=== PATIENT | female | born 1965 | race Caucasian/White ===

== ENCOUNTER 2017-02-27 11:41 | Inpatient (IN) | payer OTHER ==
[2017-02-27] MEDS ORDERED: NACL 0.9% 1000 ML 1,000 ML ONE (12:29)
[2017-02-27] MEDS ORDERED: ZOFRAN ONE (12:30)
[2017-02-27 12:50] LABS: Hematocrit 44.1 % (30.3-42.9); Hemoglobin 14.3 gm/dl (10.1-14.3); Mean Corpuscular HGB Conc 33 % (30-34); Mean Corpuscular Hemoglobin 31 pg (28-32); Mean Corpuscular Volume 96 fl (79-97); Platelet Count 175 K/mm3 (140-440); Red Cell Distribution Width 14.2 % (13.2-15.2); White Blood Count 6.7 K/mm3 (4.5-11.0)
[2017-02-27] MEDS ORDERED: ZOFRAN IV ONE (13:06)
[2017-02-27 13:07] LABS: Anion Gap 19 mmol/L; BUN/Creatinine Ratio 18.57; Blood Urea Nitrogen 13 mg/dL (7-17); Calcium 8.8 mg/dL (8.4-10.2); Carbon Dioxide 22 mmol/L (22-30); Chloride 106.1 mmol/L (98-107); Glucose 115 mg/dL (65-100); Sodium 143 mmol/L (137-145)
[2017-02-27] MEDS ORDERED: NACL 0.9% 1000 ML 1,000 ML IV ONE (13:07)
--- NOTE | 2017-02-27 14:22 | Emergency Department Report ---
ED Dizziness HPI - General Chief Complaint: Dizziness Stated Complaint: N/V/D Time Seen by Provider: 02/27/17 14:06 Source: family, EMS Mode of arrival: Stretcher Limitations: No Limitations - History of Present Illness Initial Comments: pt isia 52 y/o aaf with nmh who presents for sudden onset dizziness with n/v x 1 episode this am, [place], experience dizziness pull off road got out of car and had 1 episode or n/v , symptoms resolved post n/v pt denies cp no sob no lightheadedness no change in vision no headache, denies cardiac hx no cva, denies change in activity patent , last meal last pm , burger fries, etoh, marijuana, daily smoker, denies symptoms at this time, pt denies recent illness no cough no fever no chills , no diarrhea MD Complaint: dizziness Onset/Timin -: hour(s) Timing: sudden onset, now resolved Description: sense of movement, nausea History of Same: No History of Trauma: No Severity: moderate Improves With: rest Worsens With: nothing Associated Symptoms: denies: chest pain, confusion, cough, diaphoresis, fever/ chills, loss of appetite, malaise, rash, seizure, shortness of breath, syncope, weakness - Related Data Allergies Allergy/AdvReac Type Severity Reaction Status Date / Time No Known Allergies Allergy Verified 02/27/17 12:52 ED Review of Systems ROS: Stated complaint: N/V/D Other details as noted in HPI Constitutional: denies: chills, fever, weakness Eyes: denies: eye pain, eye discharge, vision change ENT: denies: ear pain, throat pain Respiratory: denies: cough, orthopnea, shortness of breath, wheezing Cardiovascular: denies: chest pain, palpitations Endocrine: no symptoms reported Gastrointestinal: denies: abdominal pain, nausea, diarrhea Genitourinary: denies: urgency, dysuria, discharge Musculoskeletal: denies: back pain, joint swelling, arthralgia Skin: denies: rash, lesions Neurological: denies: headache, weakness, numbness, paresthesias, confusion, abnormal gait, vertigo Psychiatric: denies: anxiety, depression Hematological/Lymphatic: as per HPI ED Past Medical Hx - Past Medical History Previous Medical History?: No Additional medical history: SB - Surgical History Past Surgical History?: No - Family History Family history: hypertension, other (COPD) - Social History Smoking Status: Current Every Day Smoker Substance Use Type: None, Alcohol, Marijuana ED Physical Exam - General Limitations: No Limitations General appearance: alert, in no apparent distress - Head Head exam: Present: atraumatic, normocephalic - Eye Eye exam: Present: normal appearance, PERRL, EOMI Pupils: Present: normal accommodation - ENT ENT exam: Present: mucous membranes moist, TM's normal bilaterally, normal external ear exam - Neck Neck exam: Present: normal inspection, full ROM. Absent: tenderness, lymphadenopathy, thyromegaly - Respiratory Respiratory exam: Present: normal lung sounds bilaterally. Absent: respiratory distress, wheezes, rales, rhonchi, stridor, chest wall tenderness - Cardiovascular Cardiovascular Exam: Present: normal rhythm, bradycardia (58 ), normal heart sounds. Absent: systolic murmur, diastolic murmur, rubs, gallop - GI/Abdominal GI/Abdominal exam: Present: soft, normal bowel sounds. Absent: tenderness, guarding, rebound, organomegaly, mass, bruit, hernia - Rectal Rectal exam: Present: deferred - Extremities Exam Extremities exam: Present: normal inspection, full ROM, normal capillary refill. Absent: tenderness, pedal edema, joint swelling, calf tenderness - Back Exam Back exam: Present: normal inspection, full ROM. Absent: CVA tenderness (R), CVA tenderness (L) - Neurological Exam Neurological exam: Present: alert, oriented X3, CN II-XII intact, normal gait, reflexes normal. Absent: motor sensory deficit - Expanded Neurological Exam Expanded Patient oriented to: Present: person, place, time Speech: Present: fluid speech Cranial nerves: EOM's Intact: Normal, Gag Reflex: Normal, Tongue Deviation: Normal, Nystagmus: Normal, Facial Sensation: Normal, Facial Palsy with Forehead Movement: Normal, Facial Palsy without Forehead Movement: Normal Cerebellar function: Finger to Nose: Normal, Heel to Hooper: Normal, Romberg: Normal Upper motor neuron: [place] Neglect: Normal, Pronator Drift: Normal, Babinski Sign : Normal, Sensory Extinction: Normal Sensory exam: Upper Extremity Light Touch: Normal, Upper Extremity Pin Prick: Normal, Upper Extremity Temperature: Normal, UE 2 Point Discrimination: Normal, Lower Extremity Light Touch: Normal, Lower Extremity Pin Prick: Normal, Lower Extremity Temperature: Normal, LE 2 Point Discrimination: Normal Motor strength exam: RUE: 5, LUE: 5, RLE: 5, LLE: 5 DTR: bicep (R): 2+, bicep (L): 2+, tricep (R): 2+, tricep (L): 2+, knee (R): 2+ , knee (L): 2+, ankle (R): 2+, ankle (L): 2+ Best Eye Response (Brianna): (4) open spontaneously Best Motor Response (Sylvester): (6) obeys commands Best Verbal Response (Sylvester): (5) oriented Sylvester Total: 15 - Psychiatric Psychiatric exam: Present: normal affect, normal mood - Skin Skin exam: Present: warm, dry, intact, normal color. Absent: rash ED Course Vital Signs 02/27/17 02/27/17 12:14 13:01 Temperature 97.8 F Pulse Rate 42 L Respiratory 18 18 Rate Blood Pressure 168/86 O2 Sat by Pulse 96 98 Oximetry - Reevaluation(s) Reevaluation #1: Hospitalist consult for Admission recommendation Admit to [facility] dx: Symptomatic Bradycardia , recommendation noted pt admitted to hospitalist. 02/27/17 16:02 ED Medical Decision Making - Lab Data Result diagrams: 02/27/17 12:38 02/27/17 12:38 Laboratory Tests 02/27/17 02/27/17 02/27/17 12:38 12:38 12:38 WBC 6.7 RBC 4.60 Hgb 14.3 Hct 44.1 H MCV 96 MCH 31 MCHC 33 RDW 14.2 Plt Count 175 Sodium 143 Potassium 4.0 Chloride 106.1 Carbon Dioxide 22 Anion Gap 19 BUN 13 Creatinine 0.7 Estimated GFR > 60 BUN/Creatinine Ratio 18.57 Glucose 115 H Calcium 8.8 Troponin T < 0.010 Laboratory Tests 02/27/17 02/27/17 02/27/17 12:38 12:38 12:38 WBC 6.7 RBC 4.60 Hgb 14.3 Hct 44.1 H MCV 96 MCH 31 MCHC 33 RDW 14.2 Plt Count 175 Sodium 143 Potassium 4.0 Chloride 106.1 Carbon Dioxide 22 Anion Gap 19 BUN 13 Creatinine 0.7 Estimated GFR > 60 BUN/Creatinine Ratio 18.57 Glucose 115 H POC Glucose Calcium 8.8 Troponin T < 0.010 Urine Color Urine Turbidity Urine pH Ur Specific [place] Urine Protein Urine Glucose (UA) Urine Ketones Urine Blood Urine Nitrite Urine Bilirubin Urine Urobilinogen Ur Leukocyte Esterase Urine WBC (Auto) Urine RBC (Auto) U Epithel Cells (Auto) Urine HCG, Qual Urine Opiates Screen Urine Methadone Screen Ur Barbiturates Screen Ur Phencyclidine Scrn Ur Amphetamines Screen U Benzodiazepines Scrn Urine Cocaine Screen U Marijuana (THC) Screen Drugs of Abuse Note 02/27/17 02/27/17 02/27/17 12:52 15:00 15:00 WBC RBC Hgb Hct MCV MCH MCHC RDW Plt Count Sodium Potassium Chloride Carbon Dioxide Anion Gap BUN Creatinine Estimated GFR BUN/Creatinine Ratio Glucose POC Glucose 111 H Calcium Troponin T Urine Color Yellow Urine Turbidity Slightly-cloudy Urine pH 8.0 H Ur Specific [place] 1.017 Urine Protein <15 mg/dl Urine Glucose (UA) Neg Urine Ketones Neg Urine Blood Neg Urine Nitrite Neg Urine Bilirubin Neg Urine Urobilinogen < 2.0 Ur Leukocyte Esterase Neg Urine WBC (Auto) 2.0 Urine RBC (Auto) 1.0 U Epithel Cells (Auto) 1.0 Urine HCG, Qual Negative Urine Opiates Screen Presumptive negative Urine Methadone Screen Presumptive negative Ur Barbiturates Screen Presumptive negative Ur Phencyclidine Scrn Presumptive negative Ur Amphetamines Screen Presumptive negative U Benzodiazepines Scrn Presumptive negative Urine Cocaine Screen Presumptive negative U Marijuana (THC) Screen Presumptive positive Drugs of Abuse Note Disclamer - EKG Data EKG shows normal: sinus rhythm Rate: normal, bradycardia - EKG Data When compared to previous EKG there are: previous EKG unavailable - Radiology Data verbal report for radiologist: normal head ct no infarct no bleed - Medical Decision Making pt is a 52 y/o aaf with nmh social hx 30 pack yr smoker, ETOH occasional , and Marijuana 1-2 weekly , pt presented to ed for episode for dizziness diaphoresis with n/v x 1 episode, symptoms resolved after n/v episode, pt denies cp or sob, no dizziness at this time, remains ambulatory to base line, exam: rec'd a/o x 3 nontoxic perrla eomi, ent: normal lungs clear bilat no wheezing, no sylvester, cv: S1 and S2 noted bradycardia at 52 bpm whic normal for this patient , no MRG, no pnd no edema , hs no hx of cad, htn, dm, no near syncope in past does have hx of bradycardia for past 10 yrs , grandmother and uncle or cardiac related issues, pt has no past dizziness no seasonal allergies, labs normal:glucose: 115 mg/dl, Tro: 0.001 UA: HCG: neg EKG: SBrady CT head: no cva no bleed normal head ct, pt advises symptoms have now resolved however hr remains consistently in 40's , ortho static bps: lying 137/85 hr 49, sittin/75 hr 51 , standin/84 hr 53 k no dizziness no n/v plan admit to hospitalist Dr. Geeta Pleitez. Bradycardia Symptomatic , consulted Ed Attending Dr. Levy concurring with same. discussed tx plan with patient, patient verbalized agreement and understanding of same. Critical care attestation.: If time is entered above; I have spent that time in minutes in the direct care of this critically ill patient, excluding procedure time. ED Disposition Clinical Impression: Symptomatic bradycardia Disposition: OP ADMIT IP TO THIS HOSP Is pt being admited?: Yes Does the pt Need Aspirin: Yes Condition: Serious Referrals: PRIMARY CARE, [Primary Care Provider] - 3-5 Days Time of Disposition: 16:08
[2017-02-27 15:08] LABS: Urine Drugs of Abuse Note Disclamer
[2017-02-27 15:18] LABS: Bilirubin,Urine NEG (Negative); Blood,Urine NEG (Negative); Ketones,Urine NEG (Negative); Leukocyte Esterase,Urine NEG (Negative); Nitrite,Urine NEG (Negative); Protein,Urine <15 mg/dL mg/dL (Negative); Urobilinogen,Urine < 2.0 mg/dL (<2.0)
--- NOTE | 2017-02-27 15:31 | Cat Scan Report ---
CT scan of head without contrast: History: Blurred vision/vertigo Findings: Ventricles are normal in size and midline in location. No evidence of acute ischemia, hemorrhage or mass. No extra axial fluid collection. Normal brainstem and cerebellum. Impression: No acute intracranial abnormality.
[2017-02-27] MEDS: ASPIRIN PO SCH ×2 (16:17→17:26)
[2017-02-27] MEDS ORDERED: MILK OF MAGNESIA PO PRN (17:27)
[2017-02-27] MEDS ORDERED: BABY ASPIRIN PO ONE (17:27)
[2017-02-27] MEDS ORDERED: DULCOLAX PR PRN (17:27)
[2017-02-27] MEDS ORDERED: PERCOCET 5/325 PO PRN (17:27)
[2017-02-27] MEDS ORDERED: DILAUDID IV PRN (17:27)
[2017-02-27] MEDS ORDERED: TYLENOL PO PRN (17:27)
[2017-02-27] MEDS ORDERED: ZOFRAN IV PRN (17:27)
--- NOTE | 2017-02-27 17:27 | History and Physical Report ---
History of Present Illness Date of examination: 02/27/17 Date of admission: 02/27/17 Chief complaint: Light headedness and and near syncope History of present illness: [place]: 52 y/o AAF with nosigPMH presents to ER for light headedness and near Syncope.Sudden onset dizziness with n/v x 1 episode this am, while [place] on [place], experienced dizziness pulled off road got out of car and had 1 episode vomiting., symptoms resolved post n/v pt denies cp no sob no lightheadedness no change in vision no headache, denies cardiac hx no Symptoms have resolved completely and feels notmal in ER.No Chest pain or Diaphoresis.No palpitations.Patient was noticed to have low heart rate of 40's.But asymptomatic. - Past Medical History Previous Medical History?: No - Surgical History Past Surgical History?: No - Family History Family history: hypertension, other (COPD) - Social History Smoking Status: Current Every Day Smoker Substance Use Type: Marijuana yesterday ROS: Stated complaint: N/V/D Other details as noted in HPI Constitutional: denies: chills, fever, weakness Eyes: denies: eye pain, eye discharge, vision change ENT: denies: ear pain, throat pain Respiratory: denies: cough, orthopnea, shortness of breath, wheezing Cardiovascular: denies: chest pain, palpitations Endocrine: no symptoms reported Gastrointestinal: denies: abdominal pain, nausea, diarrhea Genitourinary: denies: urgency, dysuria, discharge Musculoskeletal: denies: back pain, joint swelling, arthralgia Skin: denies: rash, lesions Neurological: denies: headache, weakness, numbness, paresthesias, confusion, abnormal gait, vertigo Psychiatric: denies: anxiety, depression Hematological/Lymphatic: as per HPI Medications and Allergies Allergies Allergy/AdvReac Type Severity Reaction Status Date / Time No Known Allergies Allergy Verified 02/27/17 12:52 Home Medications Medication Instructions Recorded Confirmed Last Taken Type No Known Home Medications [No 02/27/17 02/27/17 Unknown History Reported Home Medications] Active Meds: Active Medications Aspirin (Aspirin) 325 mg PO QDAY SATURNINO Last Admin: 02/27/17 17:26 Dose: Not Given Exam - Constitutional Vitals: Temp Pulse Resp BP Pulse Ox 97.8 F 58 L 15 132/81 99 02/27/17 13:01 02/27/17 16:00 02/27/17 16:00 02/27/17 16:00 02/27/17 16:00 Results - Labs CBC & Chem 7: 02/27/17 12:38 02/28/17 06:36 Labs: Laboratory Last Values WBC 6.7 K/mm3 (4.5-11.0) 02/27/17 12:38 RBC 4.60 M/mm3 (3.65-5.03) 02/27/17 12:38 Hgb 14.3 gm/dl (10.1-14.3) 02/27/17 12:38 Hct 44.1 % (30.3-42.9) H 02/27/17 12:38 MCV 96 fl (79-97) 02/27/17 12:38 MCH 31 pg (28-32) 02/27/17 12:38 MCHC 33 % (30-34) 02/27/17 12:38 RDW 14.2 % (13.2-15.2) 02/27/17 12:38 Plt Count 175 K/mm3 (140-440) 02/27/17 12:38 Sodium 143 mmol/L (137-145) 02/27/17 12:38 Potassium 4.0 mmol/L (3.6-5.0) 02/27/17 12:38 Chloride 106.1 mmol/L (98-107) 02/27/17 12:38 Carbon Dioxide 22 mmol/L (22-30) 02/27/17 12:38 Anion Gap 19 mmol/L 02/27/17 12:38 BUN 13 mg/dL (7-17) 02/27/17 12:38 Creatinine 0.7 mg/dL (0.7-1.2) 02/27/17 12:38 Estimated GFR > 60 ml/min 02/27/17 12:38 BUN/Creatinine Ratio 18.57 % 02/27/17 12:38 Glucose 115 mg/dL (65-100) H 02/27/17 12:38 POC Glucose 111 (70-105) H 02/27/17 12:52 Calcium 8.8 mg/dL (8.4-10.2) 02/27/17 12:38 Troponin T < 0.010 ng/mL (0.00-0.029) 02/27/17 14:53 Urine Color Yellow (Yellow) 02/27/17 15:00 Urine Turbidity Slightly-cloudy (Clear) 02/27/17 15:00 Urine pH 8.0 (5.0-7.0) H 02/27/17 15:00 Ur Specific [place] 1.017 (1.003-1.030) 02/27/17 15:00 Urine Protein <15 mg/dl mg/dL (Negative) 02/27/17 15:00 Urine Glucose (UA) Neg mg/dL (Negative) 02/27/17 15:00 Urine Ketones Neg mg/dL (Negative) 02/27/17 15:00 Urine Blood Neg (Negative) 02/27/17 15:00 Urine Nitrite Neg (Negative) 02/27/17 15:00 Urine Bilirubin Neg (Negative) 02/27/17 15:00 Urine Urobilinogen < 2.0 mg/dL (<2.0) 02/27/17 15:00 Ur Leukocyte Esterase Neg (Negative) 02/27/17 15:00 Urine WBC (Auto) 2.0 /HPF (0.0-6.0) 02/27/17 15:00 Urine RBC (Auto) 1.0 /HPF (0.0-6.0) 02/27/17 15:00 U Epithel Cells (Auto) 1.0 /HPF (0-13.0) 02/27/17 15:00 Urine HCG, Qual Negative (Negative) 02/27/17 15:00 Urine Opiates Screen Presumptive negative 02/27/17 15:00 Urine Methadone Screen Presumptive negative 02/27/17 15:00 Ur Barbiturates Screen Presumptive negative 02/27/17 15:00 Ur Phencyclidine Scrn Presumptive negative 02/27/17 15:00 Ur Amphetamines Screen Presumptive negative 02/27/17 15:00 U Benzodiazepines Scrn Presumptive negative 02/27/17 15:00 Urine Cocaine Screen Presumptive negative 02/27/17 15:00 U Marijuana (THC) Screen Presumptive positive 02/27/17 15:00 Drugs of Abuse Note Disclamer 02/27/17 15:00 - Imaging and Cardiology EKG: report reviewed (Bradycardia 40/min) Assessment and Plan Advance Directives: Yes (Full code) VTE prophylaxis?: Chemical Plan of care discussed with patient/family: Yes - Patient Problems (1) Symptomatic bradycardia Current Visit: Yes Status: Acute Plan to address problem: Probably vasovagal.Should resolve spontaneously. Cardiology consult requested in case symptoms and Bradycardia persists. (2) Near syncope Current Visit: Yes Status: Resolved Plan to address problem: TST given risk factor of age and smoking. (3) DVT prophylaxis Current Visit: Yes Status: Acute Plan to address problem: On Lovenox
[2017-02-27] MEDS ORDERED: D5NS 1,000 ML IV SCH (18:00)
[2017-02-28 06:57] LABS: Basophils % (Auto) 0.3 % (0.0-1.8); Eosinophils % (Auto) 3.3 % (0.0-4.3); Hematocrit 41.7 % (30.3-42.9); Hemoglobin 13.4 gm/dl (10.1-14.3); Mean Corpuscular HGB Conc 32 % (30-34); Mean Corpuscular Hemoglobin 31 pg (28-32); Mean Corpuscular Volume 97 fl (79-97); Platelet Count 157 K/mm3 (140-440); Red Blood Count 4.32 M/mm3 (3.65-5.03); Red Cell Distribution Width 14.2 % (13.2-15.2); White Blood Count 3.9 K/mm3 (4.5-11.0)
[2017-02-28 07:23] LABS: Alanine Aminotransferase 11 units/L (7-56); Albumin 3.2 g/dL (3.9-5); Albumin/Globulin Ratio 1.3 %; Alkaline Phosphatase 50 units/L (35-129); Anion Gap 12 mmol/L; BUN/Creatinine Ratio 13.33; Blood Urea Nitrogen 8 mg/dL (7-17); Calcium 8.1 mg/dL (8.4-10.2); Carbon Dioxide 26 mmol/L (22-30); Chloride 110.1 mmol/L (98-107); Glucose 103 mg/dL (65-100); Potassium 4.4 mmol/L (3.6-5.0); Sodium 144 mmol/L (137-145); Total Protein 5.6 g/dL (6.3-8.2)
[2017-02-28 07:59] LABS: Creatine Kinase MB 1.3 ng/mL (0.0-4.0)
[2017-02-28 08:00] LABS: Creatine Kinase 78 units/L (30-135)
[2017-02-28] MEDS: ASPIRIN PO SCH (11:16)
--- NOTE | 2017-02-28 11:46 | Progress Note ---
Assessment and Plan Assessment and plan: 52 y/o AAF with nosigPMH presents to ER for light headedness and near Syncope.Sudden onset dizziness with n/v x 1 episode this am, [place], experienced dizziness pulled off road got out of car and had 1 episode vomiting., symptoms resolved post n/v pt denies cp .Patient was noticed to have low heart rate of 40's Symptomatic bradycardia monitor on tele, Cardiology consult, avoid AVN agent obtain echo and stress test Autonomic imbalance IV hydration, Echocardiogram Tobacco abuse -cessation counseling provided -nicotine patches DVT prophylaxis On Lovenox History Interval history: Presently denies chest pain dizziness, nausea, vomiting, Hospitalist Physical - Physical exam Narrative exam: General: Patient appears well in no distress HEENT: MMM, EOMI cardiac: S1-S2 heard lungs: clear to auscultation, abdomen: soft, nontender, nondistended bowel sounds positive extremities: no edema clubbing or cyanosis Skin: no rash or lesion Neuro: no focal deficit Psych: appropriate behavior and mood, cognition intact - Constitutional Vitals: Temp Pulse Resp BP Pulse Ox 98.2 F 45 L 16 160/74 98 02/28/17 08:34 02/28/17 08:34 02/28/17 08:34 02/28/17 08:34 02/28/17 08:34 Results - Labs CBC & Chem 7: 02/28/17 06:36 02/28/17 06:36 Labs: Laboratory Last Values WBC 3.9 K/mm3 (4.5-11.0) L 02/28/17 06:36 RBC 4.32 M/mm3 (3.65-5.03) 02/28/17 06:36 Hgb 13.4 gm/dl (10.1-14.3) 02/28/17 06:36 Hct 41.7 % (30.3-42.9) 02/28/17 06:36 MCV 97 fl (79-97) 02/28/17 06:36 MCH 31 pg (28-32) 02/28/17 06:36 MCHC 32 % (30-34) 02/28/17 06:36 RDW 14.2 % (13.2-15.2) 02/28/17 06:36 Plt Count 157 K/mm3 (140-440) 02/28/17 06:36 Lymph % (Auto) 41.1 % (13.4-35.0) H 02/28/17 06:36 [place] % (Auto) 7.1 % (0.0-7.3) 02/28/17 06:36 Eos % (Auto) 3.3 % (0.0-4.3) 02/28/17 06:36 Baso % (Auto) 0.3 % (0.0-1.8) 02/28/17 06:36 Lymph # 1.6 K/mm3 (1.2-5.4) 02/28/17 06:36 [place] # 0.3 K/mm3 (0.0-0.8) 02/28/17 06:36 Eos # 0.1 K/mm3 (0.0-0.4) 02/28/17 06:36 Baso # 0.0 K/mm3 (0.0-0.1) 02/28/17 06:36 Seg Neutrophils % 48.2 % (40.0-70.0) 02/28/17 06:36 Seg Neutrophils # 1.9 K/mm3 (1.8-7.7) 02/28/17 06:36 Sodium 144 mmol/L (137-145) 02/28/17 06:36 Potassium 4.4 mmol/L (3.6-5.0) 02/28/17 06:36 Chloride 110.1 mmol/L (98-107) H 02/28/17 06:36 Carbon Dioxide 26 mmol/L (22-30) 02/28/17 06:36 Anion Gap 12 mmol/L 02/28/17 06:36 BUN 8 mg/dL (7-17) 02/28/17 06:36 Creatinine 0.6 mg/dL (0.7-1.2) L 02/28/17 06:36 Estimated GFR > 60 ml/min 02/28/17 06:36 BUN/Creatinine Ratio 13.33 % 02/28/17 06:36 Glucose 103 mg/dL (65-100) H 02/28/17 06:36 POC Glucose 111 (70-105) H 02/27/17 12:52 Calcium 8.1 mg/dL (8.4-10.2) L 02/28/17 06:36 Total Bilirubin 0.20 mg/dL (0.1-1.2) 02/28/17 06:36 AST 13 units/L (5-40) 02/28/17 06:36 ALT 11 units/L (7-56) 02/28/17 06:36 Alkaline Phosphatase 50 units/L (35-129) 02/28/17 06:36 Total Creatine Kinase 78 units/L (30-135) 02/28/17 06:36 CK-MB (CK-2) 1.3 ng/mL (0.0-4.0) 02/28/17 06:36 CK-MB (CK-2) Rel Index 1.6 (0-4) 02/28/17 06:36 Troponin T < 0.010 ng/mL (0.00-0.029) 02/28/17 06:36 Total Protein 5.6 g/dL (6.3-8.2) L 02/28/17 06:36 Albumin 3.2 g/dL (3.9-5) L 02/28/17 06:36 Albumin/Globulin Ratio 1.3 % 02/28/17 06:36 Urine Color Yellow (Yellow) 02/27/17 15:00 Urine Turbidity Slightly-cloudy (Clear) 02/27/17 15:00 Urine pH 8.0 (5.0-7.0) H 02/27/17 15:00 Ur Specific [place] 1.017 (1.003-1.030) 02/27/17 15:00 Urine Protein <15 mg/dl mg/dL (Negative) 02/27/17 15:00 Urine Glucose (UA) Neg mg/dL (Negative) 02/27/17 15:00 Urine Ketones Neg mg/dL (Negative) 02/27/17 15:00 Urine Blood Neg (Negative) 02/27/17 15:00 Urine Nitrite Neg (Negative) 02/27/17 15:00 Urine Bilirubin Neg (Negative) 02/27/17 15:00 Urine Urobilinogen < 2.0 mg/dL (<2.0) 02/27/17 15:00 Ur Leukocyte Esterase Neg (Negative) 02/27/17 15:00 Urine WBC (Auto) 2.0 /HPF (0.0-6.0) 02/27/17 15:00 Urine RBC (Auto) 1.0 /HPF (0.0-6.0) 02/27/17 15:00 U Epithel Cells (Auto) 1.0 /HPF (0-13.0) 02/27/17 15:00 Urine HCG, Qual Negative (Negative) 02/27/17 15:00 Urine Opiates Screen Presumptive negative 02/27/17 15:00 Urine Methadone Screen Presumptive negative 02/27/17 15:00 Ur Barbiturates Screen Presumptive negative 02/27/17 15:00 Ur Phencyclidine Scrn Presumptive negative 02/27/17 15:00 Ur Amphetamines Screen Presumptive negative 02/27/17 15:00 U Benzodiazepines Scrn Presumptive negative 02/27/17 15:00 Urine Cocaine Screen Presumptive negative 02/27/17 15:00 U Marijuana (THC) Screen Presumptive positive 02/27/17 15:00 Drugs of Abuse Note Disclamer 02/27/17 15:00
--- NOTE | 2017-02-28 12:12 | Consultation ---
History of Present Illness Consult date: 02/28/17 Requesting physician: DANK PARNELL Consult reason: bradycardia, other (presyncope) History of present illness: While driving yesterday morning, the patient claims that she became suddenly dizzy with nausea and vomiting as well as blurring of vision. Symptoms lasted for about 1 hour and persisted by the time she arrived at her destination. She felt weak thereafter. The EMS was activated and she was brought to the emergency department. She denies chest pain, palpitations or dyspnea. Over the past few years, she claims that she has had occasional episodes of dizziness. This morning, she underwent a treadmill exercise stress test which was negative for ischemia. On the monitor, she has been mostly in sinus bradycardia with heart rate in the 40s to 50s. Past History Past Medical History: No medical history Past Surgical History: Other (tubal ligation) Social history: (with 4 children), smoking, other (she drinks alcohol very occasionally) Family history: denies: CAD Medications and Allergies Allergies Allergy/AdvReac Type Severity Reaction Status Date / Time No Known Allergies Allergy Verified 02/27/17 12:52 Home Medications Medication Instructions Recorded Confirmed Last Taken Type No Known Home Medications [No 02/27/17 02/27/17 Unknown History Reported Home Medications] Active Meds: Active Medications Acetaminophen (Tylenol) 650 mg PO Q4H PRN PRN Reason: Pain MILD(1-3)/Fever >100.5/[place]CO[place] Aspirin (Aspirin) [facility] Last Admin: 02/28/17 11:16 Dose: Not Given Bisacodyl (Dulcolax) 10 mg [place] QDAY PRN PRN Reason: Constipation unrelieved by MOM Hydromorphone HCl (Dilaudid) 0.5 mg IV Q3H PRN PRN Reason: Pain , Severe (7-10) Dextrose/Sodium Chloride (D5ns) 1,000 mls @ 100 mls/hr IV DIRECT SATURNINO Magnesium Hydroxide (Milk Of Magnesia) 30 ml PO Q4H PRN PRN Reason: Constipation Nicotine (Habitrol) 7 mg TD QDAY [facility] Ondansetron HCl (Zofran) 4 mg IV Q8H PRN PRN Reason: N/V unrelieved by Reglan Oxycodone/Acetaminophen (Percocet 5/325) 1 tab PO Q6H PRN PRN Reason: Pain, Moderate (4-6) Review of Systems Constitutional: no fever, no chills Ears, nose, mouth and throat: no ear pain, no ear discharge, no sore throat Cardiovascular: lightheadedness, no chest pain, no orthopnea, no palpitations, no edema, no shortness of breath Respiratory: no cough, no hemoptysis, no shortness of breath Gastrointestinal: nausea, vomiting, no abdominal pain Genitourinary Female: no dysuria, no urinary frequency Rectal: no pain, no bleeding Musculoskeletal: no neck stiffness, no neck pain, no myalgias Integumentary: no rash, no pruritis Neurological: no weakness, no parathesias, no numbness, no tingling, no headaches Endocrine: no cold intolerance, no heat intolerance Hematologic/Lymphatic: no easy bruising, no easy bleeding Allergic/Immunologic: no urticaria, no wheezing Physical Examination Vital Signs Last Vital Signs Temp 98.2 F 02/28/17 08:34 Pulse 45 L 02/28/17 08:34 Resp 16 02/28/17 08:34 BP 160/74 02/28/17 08:34 Pulse Ox 98 02/28/17 08:34 General appearance: no acute distress HEENT: Positive: EOMI, Normocephaly, Mucus Membranes Moist Neck: Positive: neck supple, trachea midline Cardiac: Positive: Reg Rate and Rhythm, S1/S2 Lungs: Positive: clear to auscultation Neuro: Positive: Grossly Intact Abdomen: Positive: Soft, Active Bowel Sounds. Negative: Tender Skin: Positive: Clear. Negative: Rash Musculoskeletal: Normal Range of Motion Extremities: Present: normal Results 02/28/17 06:36 02/28/17 06:36 Cardiac Enzymes 02/28/17 02/28/17 Range/Units 06:36 06:36 AST 13 (5-40) units/L CK-MB (CK-2) 1.3 (0.0-4.0) ng/mL CBC 02/28/17 Range/Units 06:36 WBC 3.9 L (4.5-11.0) K/mm3 RBC 4.32 (3.65-5.03) M/mm3 Hgb 13.4 (10.1-14.3) gm/dl Hct 41.7 (30.3-42.9) % Plt Count 157 (140-440) K/mm3 Lymph # 1.6 (1.2-5.4) K/mm3 [place] # 0.3 (0.0-0.8) K/mm3 Eos # 0.1 (0.0-0.4) K/mm3 Baso # 0.0 (0.0-0.1) K/mm3 Comprehensive Metabolic Panel 02/28/17 Range/Units 06:36 Sodium 144 (137-145) mmol/L Potassium 4.4 (3.6-5.0) mmol/L Chloride 110.1 H (98-107) mmol/L Carbon Dioxide 26 (22-30) mmol/L BUN 8 (7-17) mg/dL Creatinine 0.6 L (0.7-1.2) mg/dL Glucose 103 H (65-100) mg/dL Calcium 8.1 L (8.4-10.2) mg/dL AST 13 (5-40) units/L ALT 11 (7-56) units/L Alkaline Phosphatase 50 (35-129) units/L Total Protein 5.6 L (6.3-8.2) g/dL Albumin 3.2 L (3.9-5) g/dL - Imaging and Cardiology EKG: image reviewed EKG interpretations - Telemetry EKG Rhythm: Sinus Bradycardia Assessment and Plan Her rhythm will be observed on the monitor today. Obtain thyroid profile and d- dimer. Obtain echocardiogram. - Patient Problems (1) Pre-syncope Current Visit: Yes Status: Acute (2) Sinus bradycardia Current Visit: Yes Status: Acute
--- NOTE | 2017-02-28 12:26 | Treadmill Report ---
TREADMILL STRESS TEST REPORT REASON FOR STUDY: Presyncope. STRESS TEST PROTOCOL: The patient completed 11 minutes of a Maximino protocol. She attained a peak heart rate of 174 per minute, which is 102% of her age predicted maximum (11.5 METS). No diagnostic ischemic EKG changes. No chest pain. No arrhythmias. The test was terminated due to fatigue. IMPRESSION: Negative stress test. No evidence of stress-induced ischemia. JOB# [id number] AGO/NTS
[2017-02-28] MEDS ORDERED: HABITROL TD SCH (13:00)
[2017-02-28 14:27] LABS: Creatine Kinase MB 1.6 ng/mL (0.0-4.0)
[2017-02-28 14:29] LABS: Creatine Kinase 90 units/L (30-135)
--- NOTE | 2017-02-28 14:31 | Discharge Summary ---
Providers - Providers Date of Admission: 02/27/17 16:05 Attending physician: ERAN OCAMPO MD 02/27/17 17:27 Consult to Physician [CONS] Routine Consulting Provider: LUIS ALBERTO BELLA Reason For Exam: bradycardia-Symptomatic Place consult to:: Dr. Bella Notified:: Alfonso RN Phone number called:: Was contact made?: Yes If yes, spoke with:: [facility] Time called:: 08:11 02/28/17 11:32 Consult to Physician [CONS] Routine Consulting Provider: RAVEN FERREIRA Reason For Exam: bradycardia and pre-syncope Place consult to:: Dr. 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 Hospitalization Condition: Serious Hospital course: 52 y/o AAF with nosigPMH presents to ER for light headedness and near Syncope.Sudden onset dizziness with n/v x 1 episode this am, while driving [place] [address], experienced dizziness pulled off road got out of car and had 1 episode vomiting., symptoms resolved post n/v pt denies cp .Patient was noticed to have low heart rate of 40's Symptomatic bradycardia monitor on tele, Cardiology consult, avoid AVN agent obtain echo and stress test Autonomic imbalance IV hydration, Echocardiogram Tobacco abuse -cessation counseling provided -nicotine patches DVT prophylaxis On Lovenox Disposition: DC- TO HOME OR SELFCARE Time spent for discharge: 32 minutes Core Measure Documentation - Palliative Care Palliative Care/ Comfort Measures: Not Applicable - Core Measures Any of the following diagnoses?: none Exam - Constitutional Vitals: Temp Pulse Resp BP Pulse Ox 98.1 F 50 L 14 142/77 0 L 02/28/17 12:29 02/28/17 12:29 02/28/17 12:29 02/28/17 12:29 02/28/17 12:29 General appearance: Present: no acute distress, well-nourished - EENT Eyes: Present: PERRL ENT: hearing intact, clear oral mucosa - Neck Neck: Present: supple, normal ROM - Respiratory Respiratory effort: normal Respiratory: bilateral: CTA - Cardiovascular Heart Sounds: Present: S1 & S2. Absent: rub, click - Extremities Extremities: pulses symmetrical, No edema Peripheral Pulses: within normal limits - Abdominal General gastrointestinal: Present: soft, non-tender, non-distended, normal bowel sounds Female genitourinary: Present: normal - Integumentary Integumentary: Present: clear, warm, dry - Musculoskeletal Musculoskeletal: gait normal, strength equal bilaterally - Psychiatric Psychiatric: appropriate mood/affect, intact judgment & insight - Neurologic Neurologic: CNII-XII intact, moves all extremities Plan Follow up with: PRIMARY CARE,MD [Primary Care Provider] - 3-5 Days Prescriptions: Aspirin [Adult Low Dose Aspirin EC] 81 mg PO DAILY #30 tablet. Nicotine [Habitrol] 7 mg TD QDAY #30 patch Ondansetron [Zofran Odt] 4 mg PO Q6H PRN #10 tab.rapdis PRN Reason: Nausea
[2017-02-28 17:43] VITALS: BP 150/86
== END 2017-02-28 18:23 | disposition home or self-care (01) | DRG 310 ==
LOC: ED 11:41 → EDBD 11:41 → 4A 16:05
PROVIDERS: ADMIT Internal Medicine; ATTEND Internal Medicine
DX: R00.1 Bradycardia, unspecified (principal); F17.210 Nicotine dependence, cigarettes, uncomplicated; R55 Syncope and collapse; G90.8 Other disorders of autonomic nervous system; Z98.51 Tubal ligation status; Z82.49 Family history of ischemic heart disease and other diseases of the circulatory system
CPT/HCPCS: 36415; 70450; 80048; 80053; 80307; 81001; 81025; 82550; 82553; 82962; 84439; 84443; 84484; 85025; 85027; 85379; 93005; 93010; 93017; 93306; 96361; 96374; 99406; J2405; J7030; J7042